=== PATIENT | male | born 1995 | race Caucasian/White ===

== ENCOUNTER → 2020-07-01 10:08 | Outpatient (CLI) | payer OTHER, SELFPAY ==
[2020-07-01 13:07] LABS: AST(SGOT) 25 U/L (15-37); Alanine Aminotransfer ALT/SGPT 31 U/L (16-61); Albumin, Serum 4.4 g/dL (3.2-5.0); Alkaline Phosphatase 107 U/L (45-117); Anion Gap 4 (5-15); BUN 15 mg/dL (7-18); BUN/Creat Ratio 14.6 RATIO (10-20); Calcium,Total 9.5 mg/dL (8.5-10.1); Chloride 105 mmol/L (98-107); Creatinine, Serum 1.03 mg/dL (0.70-1.30); EST Glomerular Filtration Rate 94 mL/min (>60); Est Glom Filt Rate - Afr Amer 113 mL/min (>60); Globulin 4.2 g/dL (2.2-4.2); Glucose 98 mg/dL (74-106); Potassium 4.8 mmol/L (3.5-5.1); Protein, Total 8.6 g/dL (6.4-8.2); Sodium Level 139 mmol/L (136-145); Thyroid Stim Hormone (TSH) 2.19 uIU/mL (0.358-3.74)
== END ==
PROVIDERS: PCP Family Medicine; Referring Provider Family Medicine; Visit Provider Family Medicine
DX: I10 Essential (primary) hypertension (principal)
CPT/HCPCS: 36415; 80053; 84443

== ENCOUNTER → 2021-03-23 10:04 | Outpatient (CLI) | payer OTHER, SELFPAY ==
[2021-03-23 12:21] LABS: Absolute Lymphocyte Count 1.98 X10^3/uL (0.83-4.51); Absolute Neutrophil Count 5.1 X10^3/uL (2.0-7.7); Basophil# 0.05 X10^3/uL; Basophil% 0.7 % (0-1); Eosinophil# 0.08 X10^3/uL; Hematocrit 50.3 % (40-54); Lymphocyte # 1.98 X10^3/ul (0.83-4.51); Mean Corp Hgb Conc 33.8 g/dL (32-36); Mean Corpuscular Hgb 30.6 pg (27.0-32.0); Mean Corpuscular Volume 90.6 fL (80-94); Mean Platelet Vol. 9.6 fl (6.2-12.0); Monocyte# 0.45 X10^3/uL; Monocyte% 5.9 % (0-10); NRBC Flagged by Analyzer 0 % (0-5); Neutrophil # 5.05 X10^3/uL (2.7-7.7); Neutrophil % 66.1 % (47-70); Platelet Count 333 K/mm3 (150-450); RBC Distribution Width CV 13.2 % (11.6-14.6); Red Blood Count 5.55 M/mm3 (4.6-6.2); White Blood Count 7.6 K/mm3 (4.4-11.0)
[2021-03-23 12:30] LABS: AST(SGOT) 20 U/L (15-37); Alanine Aminotransfer ALT/SGPT 32 U/L (16-61); Albumin, Serum 4.2 g/dL (3.2-5.0); Alkaline Phosphatase 90 U/L (45-117); Anion Gap 5 (5-15); BUN 15 mg/dL (7-18); BUN/Creat Ratio 15.2 RATIO (10-20); Calcium,Total 9.7 mg/dL (8.5-10.1); Chloride 106 mmol/L (98-107); Cholesterol 145 mg/dL (200); Creatinine, Serum 0.99 mg/dL (0.70-1.30); EST Glomerular Filtration Rate 98 mL/min (>60); Est Glom Filt Rate - Afr Amer 118 mL/min (>60); Glucose 107 mg/dL (74-106); High Density Lipoprotein 39 mg/dL; Potassium 5.1 mmol/L (3.5-5.1); Protein, Total 8.2 g/dL (6.4-8.2); Sodium Level 139 mmol/L (136-145); Triglycerides 109 mg/dL; Very Low Density Lipoprotein 22 mg/dL (5-40)
== END ==
PROVIDERS: PCP Internal Medicine; Referring Provider Internal Medicine; Visit Provider Internal Medicine
DX: I10 Essential (primary) hypertension (principal)
CPT/HCPCS: 36415; 80053; 80061; 85025

== ENCOUNTER → 2023-12-23 | Outpatient (CLI) | payer OTHER, SELFPAY ==
[2023-12-23 09:10] LABS: Absolute Lymphocyte Count 2.26 X10^3/uL (0.83-4.51); Absolute Neutrophil Count 3.9 X10^3/uL (2.0-7.7); Basophil# 0.06 X10^3/uL; Basophil% 0.9 % (0-1); Eosinophil# 0.16 X10^3/uL; Eosinophils% 2.3 % (0-5); Hematocrit 46.7 % (40-54); Hemoglobin 15.9 g/dL (13.0-16.5); Lymphocyte # 2.26 X10^3/ul (0.83-4.51); Lymphocyte % 32.9 % (19-41); Mean Corpuscular Hgb 29.8 pg (27.0-32.0); Mean Corpuscular Volume 87.6 fL (80-94); Monocyte# 0.47 X10^3/uL; Monocyte% 6.9 % (0-10); NRBC Flagged by Analyzer 0 % (0-5); Neutrophil % 56.9 % (47-70); Platelet Count 290 K/mm3 (150-450); RBC Distribution Width CV 12.1 % (11.6-14.6); RBC Distribution Width SD 38.5 fl (35.1-43.9); Red Blood Count 5.33 M/mm3 (4.6-6.2); White Blood Count 6.9 K/mm3 (4.4-11.0)
[2023-12-23 10:19] LABS: ALB/GLOB Ratio 1.1 RATIO (0.9-2.4); AST(SGOT) 26 U/L (15-37); Alanine Aminotransfer ALT/SGPT 43 U/L (16-61); Albumin, Serum 4.2 g/dL (3.2-5.0); Alkaline Phosphatase 86 U/L (45-117); Anion Gap 6 (5-15); BUN 15 mg/dL (7-18); BUN/Creat Ratio 15.8 RATIO (10-20); Calcium,Total 9.3 mg/dL (8.5-10.1); Chloride 106 mmol/L (98-107); Cholesterol 161 mg/dL (200); Creatinine, Serum 0.95 mg/dL (0.70-1.30); EST Glomerular Filtration Rate 100 mL/min (>60); Est Glom Filt Rate - Afr Amer 121 mL/min (>60); Globulin 3.9 g/dL (2.2-4.2); Glucose 110 mg/dL (74-106); High Density Lipoprotein 46 mg/dL; Magnesium 1.9 mg/dL (1.6-2.6); Potassium 4.8 mmol/L (3.5-5.1); Protein, Total 8.1 g/dL (6.4-8.2); Sodium Level 139 mmol/L (136-145); Triglycerides 68 mg/dL; Very Low Density Lipoprotein 14 mg/dL (5-40)
[2023-12-25 10:10] LABS: Vitamin D,25 Hydroxy 35.8 ng/mL
[2023-12-25 12:08] LABS: Insulin Level 21.1 uIU/mL (2.6-24.9)
== END | disposition home or self-care (01) ==
LOC: LAB 08:44
PROVIDERS: PCP Internal Medicine; Referring Provider Internal Medicine; Visit Provider Internal Medicine
DX: Z00.00 Encounter for general adult medical examination without abnormal findings (principal); I10 Essential (primary) hypertension; J45.909 Unspecified asthma, uncomplicated; E55.9 Vitamin D deficiency, unspecified; Z13.220 Encounter for screening for lipoid disorders
CPT/HCPCS: 36415; 80053; 80061; 82306; 83525; 83735; 84443; 85025

== ENCOUNTER → 2025-04-21 | Outpatient (CLI) | payer MEDICAID, SELFPAY ==
[2025-04-21 09:48] LABS: Hematocrit 46.6 % (40-54); Hemoglobin 16.0 g/dL (13.0-16.5); Immature Granulocytes Count 0.020 X10^3/uL (0.0-0.0); Mean Corp Hgb Conc 34.3 g/dL (32-36); Mean Corpuscular Volume 87.6 fL (80-94); Mean Platelet Vol. 9.4 fl (6.2-12.0); NRBC Flagged by Analyzer 0 % (0-5); Platelet Count 311 K/mm3 (150-450); RBC Distribution Width CV 12.0 % (11.6-14.6); RBC Distribution Width SD 38.5 fl (35.1-43.9); Red Blood Count 5.32 M/mm3 (4.6-6.2); White Blood Count 6.6 K/mm3 (4.4-11.0)
--- OUTSIDE RECORDS SUMMARY | 2025-04-21 10:19 | XMS RPT_ITS | CCD ---
Author Organization [facility] Care Team Providers Care Rn Ortho Name Role Phone Boby Lisa Primary Care Provider Angelina Hernandez Attending Unavailable Angelina Hernandez Primary Care Unavailable Allergies Allergy Classification Reported Allergen(s) Allergy Type Date of Onset Reaction(s) Facility Dust (1 source) Dust Substance Allergy 08-09-2007 Intolerance [facility] Work Phone: Mold Extract (1 source) Mold Extract Drug Allergy 08-09-2007 Intolerance [facility] Work Phone: Medications Completed/Discontinued Medications Medication Drug Class(es) Dates Sig (Normalized) Sig (Original) multivitamins(MULT IPLE VITAMIN TAB) (1 source) Start: 08-09-2007 End: 11-15-2013 multivitamins(MULTIP LE VITAMIN TAB) Take one(1) tablet daily. 0 08/09/2007 11/15/2013 Discontinued (Discontinued by Patient) Comment on above: Take one(1) tablet d aily. Problems Active Problems Problem Classification Problem Date Documented Date Episodic/Chronic Acute cerebrovascular disease (1 source) Cerebrovascular accident; Translations: [Cerebral infarction, unspecified] Onset: 07-26-2011 07-26-2011 Chronic Anxiety disorders (1 source) Anxiety disorder; Translations: [Anxiety disorder, unspecified] Onset: 01-22-2012 01-22-2012 Chronic Essential hypertension (1 source) Essential (primary) hypertension; Translations: [Essential (primary) hypertension] Onset: 03-06-2025 Chronic Other acquired deformities (1 source) Contracture of joint of hand; Translations: [Contracture, unspecified hand] Onset: 06-22-2010 06-22-2010 Chronic Other and ill-defined cerebrovascular disease (1 source) Acute ill-defined cerebrovascular disease; Translations: [Other cerebrovascular disease] Onset: 11-25-2007 11-25-2007 Chronic Paralysis (1 source) Spastic hemiplegia of nondominant side; Translations: [Spastic hemiplegia affecting unspecified side] Onset: 11-25-2007 11-25-2007 Chronic Past or Other Problems Problem Classification Problem Date Documented Da te Episodic/Chronic Other connective tissue disease (1 source) Contracture of Achilles tendon; Translations: [Short Achilles tendon (acquired), unspecified ankle] Onset: 06-22-2010 06-22-2010 Episodic Results Test Name Value Interpretation Reference Range Facil ity MR/BMS.IMBon 03-06-2025 MR/BMS.IMB [facility] [address] [place], [place] [address] OFFICE VISIT Date of Service: 03/06/25 MR#: [id number] Acct: [id number] Name: RICHARD VALLADARES Rep #: [id number] : 1995 Provider: Dr. 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 Required: No Accompanied by: Self Is patient in pain?: No Allergies No Known Allergies Allergy (Verified 03/06/25 08:21) Medications ???Medication ???Instructions ???Recorded ???Confirmed ???Type silver sulfadiazine 1 % topical 1 applic topical DAILY PRN wound 0 11/21/22 03/06/25 Rx cream healing #50 grams ashwagandha extract 120 mg capsule 240 mg PO 03/06/25 03/06/25 Hist ory [facility] Medical History Impacted cerumen, right ear Hemiplegia Hypertension Asthma History of stroke Surgical History History of hand surgery Family History Mother Diabetes Hypertension Cancer Grandfather Diabetes Myocardial infarction Hypertension Grandmother Lupus Social History Smoking Status: Never smoker alcohol intake: never substance use type: does not use frequency: daily HPI HPI Chief Complaint: No acute concerns Details: RICHARD VALLADARES, is a 29 M who presents to the office today for annual wellness follow-up. 29-year-old gentleman who generally speaking is quite healthy. He takes no long-term medications an d has no longstanding medical problems. He has had some problems with blood pressure elevations in the past. Overall he does not have any significant bothersome concerns or problems. He has been gaining weight. We spent a fair amount of time discussing the today. In , he was 225 pounds approximately, and has been steadily increasing, even much more noticeable over the last year. 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 He has recently changed jobs to a more physical job which he actually likes better. He states it helps with anxiety symptoms that he is struggling with at times by being more physically active. He is trying to get back into playing basketball which he had done for many years. We spent a fair amount of time once again discussing dietary nutritional patterns and still emphasized mostly Mediterranean format. Particularly needs to reduce the carb intake I would suggest as well as increasing physical activity. In the past his blood pressures have been elevated at times and he was doing home monitoring and home blood pressures have been okay ago particularly when he was eating a better quality diet. Emphasized that once again today. Review of systems per chart. Denies chest pain, chest tightness, shortness of breath, wheeze, cough, congestion, fever, chills, nausea, vomiting, change in bowel movements, any urinary concerns. Physical exam. Vital signs on chart. PERRLA. Sclera are clear. TMs are unremarkable with normal light reflexes. Canals are unremarkable. Posterior pharynx is unremarkable. Good dentition. No cervical or supraclavicular lymph nodes enlarged or tender. No clear thyromegaly. No thyroid nodules readily palpable. Lungs are without wheeze, rhonchi, rales. No E/A changes are heard. Heart is regular. Not tachycardic. No clear murmur, rub, or gallop is identified. The abdomen is soft. Bowel sounds are present. Nontender nondistended abdomen. No clear palpable masses in the abdomen. No significant leg edema. Cranial nerve examination 2 through 12 are grossly unremarkable nonlateralizing. Deep tendon reflexes are 2/4 and symmetric at the bicep, tricep, Achilles, patella. No ankle clonus. No obvious rashes. No obvious significant skin lesions are identified. ROS Const Constitutional: No body ache, chills, excessive sweating, fatigue, fever(s), frequent falls, headache(s), snoring, weakness or change in appetite Eyes Eyes: No blurry vision, change in vision, eye pain or Light sensitivity ENT ENT: No abnormal hearing, ear or mastoid pain, tinnitus, nasal congestion, headache(s), neck pain or sore throat Resp Respiratory: No cough, shortness of breath, snoring or wheezing Cardio Cardiology: No chest pain at rest, (more content not included)... Normal [facility] Encounters Encounter Date Encounter Type Care Provider Facility Start: 03-06-2025 Encounter for corrine l adult medical examination without abnormal findings [facility] Start: 03-06-2025 End: 03-06-2025 ambulatory [facility] [place] [place]: 12-19-2011 End: 12-19-2011 Telephone encounter [facility] Comment on above: FYI-No Action Needed (son not allowed on van) Plan of Treatment Date Care Activity Detail Author Start: 12-30-2020 Influenza vaccination INFLUENZA (Sea son Ended) [facility] Start: 12-31-2018 Urine microalbumin profile DTAP,TDAP ,TD (7 - Td) [facility] Start: 2013 [facility] 2013 HIV SCREENING [facility] SCREENING [facility] Start: 2007 Adult depression scr eening assessment DEPRESSION SCREENING [facility] Start: 2006 HPV VACCINE (1 - Mal e 2-dose series) HPV VACCINE (1 - Male 2-dose series) [facility] Immunizations Immunization Date Immunization Notes Care Provider Rudi reyna 12-31-2008 Meningococcal, MCV4, unspecified conjugate formulation(groups A, C, Y and W-135) [facility] 12-31-2008 tetanus toxoid, redu jem diphtheria toxoid, and acellular pertussis vaccine, adsorbed [facility] 10-07-2000 diphtheria, tetanus toxoids and acellular pertussis vaccine [facility] 10-07-2000 poliovirus vaccine, inactivated [facility] 10-05-2000 measles, mumps and r ubella virus vaccine [facility] 09-27-1996 diphtheria, tetanus toxoids and acellular pertussis vaccine [facility] 06-07-1996 haemophilus influenz ae type b vaccine, HbOC conjugate [facility] 06-07-1996 measles, mumps and r ubella virus vaccine [facility] 1995 diphtheria, tetanus toxoids and acellular pertussis vaccine [facility] 1995 haemophilus influenz ae type b vaccine, HbOC conjugate [facility] 1995 hepatitis B vaccine, pediatric or pediatric/adolescent dosage [facility] 1995 trivalent poliovirus vaccine, live, oral [facility] 1995 diphtheria, tetanus toxoids and acellular pertussis vaccine [facility] 1995 haemophilus influenz ae type b vaccine, HbOC conjugate [facility] 1995 trivalent poliovirus vaccine, live, oral [facility] 1995 diphtheria, tetanus toxoids and acellular pertussis vaccine [facility] 1995 haemophilus influenz ae type b vaccine, HbOC conjugate [facility] 1995 hepatitis B vaccine, pediatric or pediatric/adolescent dosage [facility] 1995 trivalent poliovirus vaccine, live, oral [facility] 1995 hepatitis B vaccine, pediatric or pediatric/adolescent dosage [facility] Payers Date Payer Category Payer Self-pay [id number] Unknown [id number] 2011 Unknown MMO MMO [employer] [id number] 2011-2013 PPO [id number] Unknown [id number] Social History Date Type Detail Facility Start: 07-26-2011 Tobacco smoking status NHIS Never sm oker [facility] Start: 07-26-2011 Alcohol intake Not Asked [facility] Start: 1995 Sex Assigned At Not on file [facility] Clinic Note 12-19-2011 Telephone Encounter - Moo Dent, Franny - 12/19/2011 11:24 AM EDT Note Date & Type Note Facility 12-19-2011 Miscellaneous Notes Mom calling to inform office that even after Dr. Loving's letter was sent to the school about the need to ride the van vs. the bus, the school is still not allowing him access to ride the van. Family has enlisted the help of an cement despatch operator who would like to speak directly to this office and mom is granting permission. Mom will fax a release to this office. Questions for mom can be called to number above. documented in this encounter [facility] Summary Purpose Family History No Family History Records Found Advance Directives No Advanced Directives Records Found Additional Source Comments Source Comments (unrecognize d section and content) In the event this informatio n is protected by the Federal Confidentiality of Alcohol and Drug Abuse Patient Records regulations: The Federal rules restrict any use of the information to criminally investigate or prosecute any alcohol or drug abuse patient.[facility] Reason for Visit (unrecogniz ed section and content) Reason Onset Date Comments I-No Action Needed 12/19/2011 son not all owed on van (unrecognized sect ion and content) No Status Records Found INFORMATION SOURCE (unrecogn ized section and content) DATE CREATED AUTHOR 03/07/2025 [facility] FOR RECORDS PERTAINING TO PATIENTS WHO ARE OR HAVE BEEN ENROLLED IN A CHEMICAL DEPENDENCY/SUBSTANCEABUSE PROGRAM, SOME INFORMATION MAY BE OMITTED. This clinical summary was aggregated from multiple sources. Caution should be exercised in using it in the provision of clinical care. This summary normalizes information from multiple sources, and as a consequence, information in this document may materially change the coding, format and clinical context of patient data. In addition, data may be omitted in some cases. CLINICAL DECISIONS SHOULD BE BASED ON THE PRIMARY CLINICAL RECORDS. [employer] provides no warranty or guarantee of the accuracy or completeness of information in this document.
[2025-04-21 10:55] LABS: AST(SGOT) 32 U/L (<=37); Alanine Aminotransfer ALT/SGPT 42 U/L (<=46); Albumin, Serum 4.7 g/dL (3.5-5.0); Alkaline Phosphatase 82 U/L (40-129); Anion Gap 10 (5-15); BUN 12 mg/dL (4-19); BUN/Creat Ratio 13.8 RATIO (10-20); Calcium,Total 9.5 mg/dL (7.6-11.0); Carbon Dioxide 25.3 mmol/L (21.0-32.0); Chloride 104 mmol/L (98-108); Cholesterol 162 mg/dL (<=200); Globulin 3.0 g/dL (2.2-4.2); Glucose 110 mg/dL (70-99); Low Density Lipoprotein Calc. 95 mg/dL; Potassium 4.3 mmol/L (3.3-5.1); Triglycerides 218 mg/dL; Very Low Density Lipoprotein 44 mg/dL (5-40); Vitamin B12 460 pg/mL (180-914); Vitamin D,25 Hydroxy 23.2 ng/mL (30-100); cholesterol:hdl ratio screen 5.51
== END | disposition home or self-care (01) ==
LOC: LAB 09:10
PROVIDERS: PCP Internal Medicine; Referring Provider Internal Medicine; Visit Provider Internal Medicine
DX: Z00.00 Encounter for general adult medical examination without abnormal findings (principal); Z13.220 Encounter for screening for lipoid disorders; I10 Essential (primary) hypertension; E53.8 Deficiency of other specified B group vitamins; E55.9 Vitamin D deficiency, unspecified; R73.9 Hyperglycemia, unspecified
CPT/HCPCS: 36415; 80053; 80061; 82306; 82607; 83036; 84443; 85025